=== PATIENT | female | born 1980 | race Caucasian/White ===

== ENCOUNTER 2016-04-03 12:37 | Emergency (ER) | payer SELFPAY ==
[2016-04-03 13:02] LABS: Blood, Urine Moderate (Negative); Glucose, Urine (Dipstick) Negative (Negative); Ketone, Urine Negative (Negative); Nitrite Negative (Negative); Protein, Urine (Dipstick) 30 mg/dL (Neg-Trace)
[2016-04-03 13:07] LABS: Bilirubin Negative (Negative)
[2016-04-03 13:11] LABS: Bacteria/HPF 1+ HPF (None Seen); WBC/HPF None Seen HPF (0-3)
[2016-04-03 13:12] LABS: Methadone Not Detected (NotDetected); Methamphetamine Detected (NotDetected)
[2016-04-03] MEDS ORDERED: Azithromycin 250 MG TAB ONE (13:51)
--- NOTE | 2016-04-03 14:14 | ERRECORD ---
[facility] EMERGENCY RECORD HPI VAGINAL DISCHARGE (13:06 SHAN) CHIEF COMPLAINT: Patient presents for evaluation of vaginal discharge, Patient presents for evaluation of came in with hx of tampon left in for about a month; odor. patient removed it. came in to be certain 'not another one there' and concern about the odor. HISTORIAN: History provided by patient. ROS (13:07 SHAN) CONSTITUTIONAL: Negative constitutional review of systems. EYES: Negative eye review of systems. ENT: Negative ears, nose, throat review of systems. CARDIOVASCULAR: Negative cardiovascular review of systems. RESPIRATORY: Negative respiratory review of systems. GI: Negative gastrointestinal review of systems. GENITOURINARY FEMALE: vaginal odor. MUSCULOSKELETAL: Negative musculoskeletal review of systems. SKIN: Negative skin review of systems. NEUROLOGIC: Negative neurologic review of systems. ENDOCRINE: Negative endocrine review of systems. NOTES: All systems reviewed, negative except as described above. PAST MEDICAL HISTORY (12:49 BDON) MEDICAL HISTORY: Flu vaccine not up to date, Tetanus not up to date, Pneumococcal vaccine not up to date, No past medical history. FEMALE SURGICAL HISTORY: Surgical history of section. PSYCHIATRIC HISTORY: Psychiatric history includes, anxiety, bipolar disorder, PANIC ATTACKS. SOCIAL HISTORY: Patient drinks socially, Patient currently uses drugs, abuses marijuana, Patient currently uses tobacco, smokes cigarettes. KNOWN ALLERGIES No Known Drug Allergies CURRENT MEDICATIONS (12:45 BDON) PROzac: CAPSULE : Strength - 20 mg : ORAL Patient Dose: uk once a day. traZODone: TABLET : Strength - 150 mg : ORAL Patient Dose: uk once a day (at bedtime). VITAL SIGNS VITAL SIGNS: BP: 142/92, Pulse: 95, Resp: 17, Temp: 97.8 (Oral), Pain: 0, O2 sat: 99, Time: 04/03/2016 12:41. (12:41 BDON) Pulse: 88, Resp: 18, Pain: 0, Time: 04/03/2016 14:02. (14:02 BDON) PHYSICAL EXAM &a-1R&a+25V*p+0X*k1328Y*c202B*c15G*c2P*p-0X&a-25V&a+1R Name: Natty Carty Maggie : 1980 F35 MedRec: [id number] AcctNum: [id number] Prepared: MonApr 04, 2016 06:20 by Interface Page 1 of 3 D [facility] EMERGENCY RECORD CONSTITUTIONAL: Patient afebrile, Pulse normal, Blood pressure normal, Respiratory rate normal, Patient appears non toxic, Patient appears pain free, Patient alert and oriented to person, place and time. (13:07 SHAN) HEAD: Head exam included findings of head atraumatic, normocephalic. (13:07 SHAN) EYES: Eye exam normal, Eye exam included findings of eyelids normal to inspection, Pupils equally round and reactive to light, Extraocular muscles intact. (13:07 SHAN) ENT: ENT exam normal, Pharynx exam normal, Uvula exam normal, Tonsil exam normal. (13:07 SHAN) NECK: Neck exam normal, Neck exam included findings of normal range of motion, Trachea midline. (13:07 SHAN) RESPIRATORY CHEST: Respiratory and chest exam normal, Chest exam included findings of chest movement symmetrical, Chest expansion equal, Percussion normal. (13:07 SHAN) CARDIOVASCULAR: Cardiovascular assessment normal, Cardiovascular exam included findings of heart rate regular rate and rhythm, Heart sounds normal. (13:07 SHAN) ABDOMEN FEMALE: Abdominal exam normal, Abdominal exam included findings of abdomen nontender, Bowel sounds normal. (13:07 SHAN) GENITOURINARY FEMALE: with nurse evaluation assistant present, vaginal exam with speculum and bimanual done; cervix not unusually tender, some old blood present; moderate foul smelling odor. (13:08 SHAN) BACK: Back exam normal. (13:07 SHAN) UPPER EXTREMITY: Upper extremity exam normal, Upper extremity exam included findings of inspection normal, Range of motion normal. (13:07 SHAN) LOWER EXTREMITY: Lower extremity exam normal, Lower extremity exam included findings of inspection normal, Range of motion normal. (13:07 SHAN) NEURO: Neuro exam normal. (13:07 SHAN) SKIN: Skin exam normal. (13:07 SHAN) PSYCHIATRIC: Psychiatric exam normal, Psychiatric exam included findings of patient oriented to person place and time, Normal affect, Judgment normal, Insight normal. (13:07 SHAN) MEDICATION ADMINISTRATION SUMMARY Drug Name: Zithromax oral, Dose Ordered: 4 tab(s), Route: Oral, Status: Given, Time: 13:55 04/03/2016, Detailed record available in Medication Service section. DOCTOR NOTES (13: MINI) TEXT: Adult female who stated that she discovered a tampon in the vagina left over from last month and removed it; wanted to have the odor with discharge checked and also wanted to have to make sure more material not in the vagina. With the nurse present, exam done and odor and blood noted. GC and Chlamydia tests done. Will rx &a-1R&a+25V*p+0X*[id number]*c202B*c15G*c2P*p-0X&a-25V&a+1R Name: Natty Carty : 1980 F35 MedRec: [id number] AcctNum: [id number] Prepared: MonApr 04, 2016 06:20 by Interface Page 2 of 3 pMD [facility] EMERGENCY RECORD as vaginitis r/o cervicitis. Discussed that there will be some pending tests. PROBLEM LIST No recorded problems DIAGNOSIS (13:19 MINI) FINAL: PRIMARY: Acute vaginitis, ADDITIONAL: drug abuse, recent vaginal foreign body. PRESCRIPTION Flagyl: TABLET : 500 mg : ORAL : Quantity: 1 Unit: tab(s) Route: ORAL Schedule: 3 times a day Dispense: 30 Unit: tab(s) May substitute. Refills: No Refills . (13:14 MINI) NOTES: No Refills. (13:14 MINI) Vibramycin capsule: CAPSULE : 100 mg : ORAL : Quantity: 1 Unit: cap(s) Route: ORAL Schedule: 2 times a day (with meals) Dispense: 14 Unit: tab(s) May substitute. Refills: No Refills . (13:15 MINI) NOTES: No Refills. (13:15 MINI) DISPOSITION PATIENT: Disposition Type: Discharge, Disposition: *Discharge Home. (13:19 MINI) Patient left the department. (14:06 CONCHIS) Renteria: CONCHIS=SAHRA Arreguin, Ana MORSE=MD Hunter, Madi &a-1R&a+25V*p+0X*[id number]*c202B*c15G*c2P*p-0X&a-25V&a+1R Name: Natty Carty : 1980 F35 MedRec: [id number] AcctNum: [id number] Prepared: MonApr 04, 2016 06:20 by Interface Page 3 of 3 pMD MTDD
--- NOTE | 2016-04-03 14:14 | PICIS ---
[facility] EMERGENCY RECORD TRIAGE ([place] Apr 03, 2016 12:44 BDON) TRIAGE NOTES: A month ago, forgot about tampon, found last night. Strong odor like "a animal", had cramps earlier but not now. Have since taken out. Denies urinary. ([place] Apr 03, 2016 12:44 BDON) PATIENT: NAME: Natty Carty, AGE: 35, GENDER: female, : Mon1980, TIME OF GREET: MonApr 03, 2016 12:38, PREFERRED LANGUAGE: Persian, ETHNICITY: Not or , ECODE BILLING MAP: [facility], SSN: [id number], Zip Code: [address], KG WEIGHT: 71.21, PHONE: , , , PERSON ID: [id number], PCP: Nawaf Greenwood, /Son. ([place] Apr 03, 2016 12:44 BDON) COMPLAINT: FEMALE ISSUES. ([place] Apr 03, 2016 12:44 BDON) ADMISSION: URGENCY: 4 Non Urgent, ADMISSION SOURCE: Home, TRANSPORT: Walk-in, BED: TRIAGE. ([place] Apr 03, 2016 12:44 BDON) ASSESSMENT: Assessment: Tampoon left in vaginia for a month. States had strong odor, denies urinary symptoms. Took out last night...no pain now, Symptoms began yesterday. (12:49 BDON) TREATMENTS IN PROGRESS: Treatments given Prehospital: aspirin 325mg 1100, Atarril yesterday morning. (12:49 BDON) PROVIDERS: TRIAGE NURSE: Ana Arreguin RN. ([place] Apr 03, 2016 12:44 BDON) VITAL SIGNS: BP 142/92, Pulse 95, Resp 17, Temp 97.8, (Oral), Pain 0, O2 Sat 99, Time 04/03/2016 12:41. (12:41 BDON) PREVIOUS VISIT ALLERGIES: No Known Drug Allergies. ([place] Apr 03, 2016 12:44 BDON) No Known Drug Allergies. (12:49 BDON) KNOWN ALLERGIES No Known Drug Allergies CURRENT MEDICATIONS (12:45 BDON) PROzac: CAPSULE : Strength - 20 mg : ORAL Patient Dose: uk once a day. traZODone: TABLET : Strength - 150 mg : ORAL Patient Dose: uk once a day (at bedtime). VITAL SIGNS VITAL SIGNS: BP: 142/92, Pulse: 95, Resp: 17, Temp: 97.8 (Oral), Pain: 0, O2 sat: 99, Time: 04/03/2016 12:41. (12:41 BDON) Pulse: 88, Resp: 18, Pain: 0, Time: 04/03/2016 14:02. (14:02 BDON) NURSING ASSESSMENT: GENITOURINARY (12:57 BDON) CONSTITUTIONAL: Patient arrives ambulatory, Gait steady, History obtained from patient, Patient appears comfortable, Patient cooperative, Patient alert, Oriented to person, place and time, Skin warm, Skin dry, Skin normal in color. GENITOURINARY FEMALE: no associated urinary complaints, Notes: &a-1R&a+25V*p+0X*s9233M*c202B*c15G*c2P*p-0X&a-25V&a+1R Name: Natty Carty : 1980 F35 MedRec: [id number] AcctNum: [id number] Prepared: MonApr 04, 2016 06:26 by Interface Page 1 of 7 pMD [facility] EMERGENCY RECORD tampon from last month was removed yesterday, states prior to removal some cramping but none now. Denies urinary complaints. ABDOMEN: Abdomen assessment findings include abdomen symmetrical, Abdomen soft, non-tender. SAFETY: Cart/Stretcher in lowest position, Hospital ID band on, Patient in view of the nursing station. NURSING PROCEDURE: DISCHARGE NOTE (14:02 BDON) DISCHARGE: Patient discharged to home, ambulating without assistance, accompanied by //partner, Summary of Care printed/ provided, Patient requested and was provided an electronic copy of Discharge Instructions, Transition record given to patient, Discharge instructions given to patient, Simple or moderate discharge teaching performed, Prescriptions given and instructions on side effects given, Medication reconciliation form given, Above person(s) verbalized understanding of discharge instructions and follow-up care, Patient treated and evaluated by physician. BELONGINGS: boots. VITAL SIGNS: Pulse: 88, Resp: 18, Pain: 0. NURSING PROCEDURE: NURSE NOTES (12:48 BDON) NURSES NOTES: Patient assisted to bathroom with steady gait. NURSING PROCEDURE: PELVIC EXAM (13:03 EPIE) PELVIC EXAM: Pelvic exam performed by Dr. Hunter CARMICHAEL, Pelvic exam assisted by Tyesha BOCANEGRA, Exam findings include bleeding, small amount. ORDER DETAILS Order Name: Drug Screen, Urine, Status: Active, Time: 12:51 04/03/2016, User: MINI, - Ordered for: MD Harrison Stanley, - Entered by: MD Harrison Stanley - Sun Apr 03, 2016 12:51, - Quantity: 1, Order Name: GC/Chlamydia Profile by PCR, Status: Active, Time: 12:53 04/03/2016, User: MINI, - Ordered for: MD Harrison Stanley, - Entered by: MD Harrison Stanley - Sun Apr 03, 2016 12:53, - Quantity: 1, Order Name: Miscellaneous Nurse Order(s), Status: Done, Time: 13:02 04/03/2016, User: CONCHIS, - Ordered for: MD Harrison Stanley, - Entered by: SAHRA Arreguin, Ana Ramírez Apr 03, 2016 13:01, - Quantity: 1, Order Name: Test, Urine (BHCG), Status: Active, Time: 12:52 04/03/2016, User: MINI, - Ordered for: MD Harrison Stanley, - Entered by: MD Harrison Stanley - Sun Apr 03, 2016 12:52, - Quantity: 1, &a-1R&a+25V*p+0X*y1206Q*c202B*c15G*c2P*p-0X&a-25V&a+1R Name: MachelleNatty : 1980 F35 MedRec: [id number] AcctNum: [id number] Prepared: MonApr 04, 2016 06:26 by Interface Page 2 of 7 pMD [facility] EMERGENCY RECORD Order Name: Urinalysis w/ Rflx Microscopic, Status: Active, Time: 12:46 04/03/2016, User: CONCHIS, - Ordered for: MD Harrison Stanley, - Entered by: SAHRA Arreguin Bettye - Sun Apr 03, 2016 12:46, - Quantity: 1. MEDICATION ADMINISTRATION SUMMARY Drug Name: Zithromax oral, Dose Ordered: 4 tab(s), Route: Oral, Status: Given, Time: 13:55 04/03/2016, Detailed record available in Medication Service section. MEDICATION SERVICE (13:55 SHAN) Zithromax oral: Order: Zithromax oral (azithromycin) - Dose: 4 tab(s) : Oral Schedule: Now Ordered by: Madi Harrison MD Entered by: Madi Harrison MD [place] Apr 03, 2016 13:13 Documented as given by: Ana Arreguin RN [place] Apr 03, 2016 13:55 Patient, Medication, Dose, Route and Time verified prior to administration. Site: Medication administered P.O., Correct patient, time, route, dose and medication confirmed prior to administration, Patient advised of actions and side-effects prior to administration, Allergies confirmed and medications reviewed prior to administration. HPI VAGINAL DISCHARGE (13:06 SHAN) CHIEF COMPLAINT: Patient presents for evaluation of vaginal discharge, Patient presents for evaluation of came in with hx of tampon left in for about a month; odor. patient removed it. came in to be certain 'not another one there' and concern about the odor. HISTORIAN: History provided by patient. ROS (13:07 SHAN) CONSTITUTIONAL: Negative constitutional review of systems. EYES: Negative eye review of systems. ENT: Negative ears, nose, throat review of systems. CARDIOVASCULAR: Negative cardiovascular review of systems. RESPIRATORY: Negative respiratory review of systems. GI: Negative gastrointestinal review of systems. GENITOURINARY FEMALE: vaginal odor. MUSCULOSKELETAL: Negative musculoskeletal review of systems. SKIN: Negative skin review of systems. NEUROLOGIC: Negative neurologic review of systems. ENDOCRINE: Negative endocrine review of systems. NOTES: All systems reviewed, negative except as described above. PAST MEDICAL HISTORY (12:49 BDON) MEDICAL HISTORY: Flu vaccine not up to date, Tetanus not up to date, Pneumococcal vaccine not up to date, No past medical &a-1R&a+25V*p+0X*s6934I*c202B*c15G*c2P*p-0X&a-25V&a+1R Name: Natty Carty : 1980 F35 MedRec: [id number] AcctNum: [id number] Prepared: MonApr 04, 2016 06:26 by Interface Page 3 of 7 pMD [facility] EMERGENCY RECORD history. FEMALE SURGICAL HISTORY: Surgical history of section. PSYCHIATRIC HISTORY: Psychiatric history includes, anxiety, bipolar disorder, PANIC ATTACKS. SOCIAL HISTORY: Patient drinks socially, Patient currently uses drugs, abuses marijuana, Patient currently uses tobacco, smokes cigarettes. PHYSICAL EXAM CONSTITUTIONAL: Patient afebrile, Pulse normal, Blood pressure normal, Respiratory rate normal, Patient appears non toxic, Patient appears pain free, Patient alert and oriented to person, place and time. (13:07 SHAN) HEAD: Head exam included findings of head atraumatic, normocephalic. (13:07 SHAN) EYES: Eye exam normal, Eye exam included findings of eyelids normal to inspection, Pupils equally round and reactive to light, Extraocular muscles intact. (13:07 SHAN) ENT: ENT exam normal, Pharynx exam normal, Uvula exam normal, Tonsil exam normal. (13:07 SHAN) NECK: Neck exam normal, Neck exam included findings of normal range of motion, Trachea midline. (13:07 SHAN) RESPIRATORY CHEST: Respiratory and chest exam normal, Chest exam included findings of chest movement symmetrical, Chest expansion equal, Percussion normal. (13:07 SHAN) CARDIOVASCULAR: Cardiovascular assessment normal, Cardiovascular exam included findings of heart rate regular rate and rhythm, Heart sounds normal. (13:07 SHAN) ABDOMEN FEMALE: Abdominal exam normal, Abdominal exam included findings of abdomen nontender, Bowel sounds normal. (13:07 SHAN) GENITOURINARY FEMALE: with nurse library clerical assistant present, vaginal exam with speculum and bimanual done; cervix not unusually tender, some old blood present; moderate foul smelling odor. (13:08 SHAN) BACK: Back exam normal. (13:07 SHAN) UPPER EXTREMITY: Upper extremity exam normal, Upper extremity exam included findings of inspection normal, Range of motion normal. (13:07 SHAN) LOWER EXTREMITY: Lower extremity exam normal, Lower extremity exam included findings of inspection normal, Range of motion normal. (13:07 SHAN) NEURO: Neuro exam normal. (13:07 SHAN) SKIN: Skin exam normal. (13:07 SHAN) PSYCHIATRIC: Psychiatric exam normal, Psychiatric exam included findings of patient oriented to person place and time, Normal affect, Judgment normal, Insight normal. (13:07 SHAN) EVENTS TRANSFER: Triage to Emergency Triage. ([place] Apr 03, 2016 12:44 &a-1R&a+25V*p+0X*k5478S*c202B*c15G*c2P*p-0X&a-25V&a+1R Name: Natty Carty : 1980 F35 MedRec: [id number] AcctNum: [id number] Prepared: [facility] Apr 04, 2016 06:26 by Interface Page 4 of 7 pMD [facility] EMERGENCY RECORD BDON) Emergency Triage to Emergency Room -05. (12:44 EPIE) Removed from Emergency Emergency Room -05. (14:06 BDON) DOCTOR NOTES (13:09 SHAN) TEXT: Adult female who stated that she discovered a tampon in the vagina left over from last month and removed it; wanted to have the odor with discharge checked and also wanted to have to make sure more material not in the vagina. With the nurse present, exam done and odor and blood noted. GC and Chlamydia tests done. Will rx as vaginitis r/o cervicitis. Discussed that there will be some pending tests. PROBLEM LIST No recorded problems DIAGNOSIS (13:19 SHAN) FINAL: PRIMARY: Acute vaginitis, ADDITIONAL: drug abuse, recent vaginal foreign body. DISPOSITION PATIENT: Disposition Type: Discharge, Disposition: *Discharge Home. (13:19 SHAN) Patient left the department. (14:06 BDON) INSTRUCTION (13:17 SHAN) DISCHARGE: FOREIGN BODY VAGINAL ADULT, VAGINITIS, BACTERIAL. FOLLOWUP: [facility], /[facility], [address] [place] [id number], . SPECIAL: 1. one antibiotic is three times a day; the other is twice a day; take them with food and no alcohol while on them 2. drink extra fluids 3. a yeast infection could occur, otc monistat or similar agent could be used 4. followup with regular provider in about 10 days 5. return earlier if problems develop. PRESCRIPTION Flagyl: TABLET : 500 mg : ORAL : Quantity: 1 Unit: tab(s) Route: ORAL Schedule: 3 times a day Dispense: 30 Unit: tab(s) May substitute. Refills: No Refills . (13:14 SHAN) NOTES: No Refills. (13:14 SHAN) Vibramycin capsule: CAPSULE : 100 mg : ORAL : Quantity: 1 Unit: cap(s) Route: ORAL Schedule: 2 times a day (with meals) Dispense: 14 Unit: tab(s) May substitute. Refills: No Refills . (13:15 SHAN) NOTES: No Refills. (13:15 SHAN) IMAGING (14:05 BDON) &a-1R&a+25V*p+0X*x2262S*c202B*c15G*c2P*p-0X&a-25V&a+1R Name: Natty Carty : 1980 F35 MedRec: [id number] AcctNum: [id number] Prepared: MonApr 04, 2016 06:26 by Interface Page 5 of 7 pMD [facility] EMERGENCY RECORD *DISCHARGE INSTRUCTIONS RECEIPT: Image captured from scanner. *SUPPLY CHARGE SHEET: Image captured from scanner. ADMIN DIGITAL SIGNATURE: SAHRA Arreguin, Ana. (14:06 BDON) MD Hunter, Madi. (MonApr 04, 2016 06:17 SHAN) RESULTS (13:18 SHAN) LABORATORY: Test, Urine (BHCG) Collection DT: [place] Apr 03, 2016 13:01, Test - Urine (BHCG) NEGATIVE , Range (NEGATIVE), Method of sensitivity- Indeterminant: results should be repeated, after 48 hours. Positive: results may be detected as early as 4-5 days before a first missed menses. Elimination of BHCG-, Elimination following first trimester D&C: 29-44 Days , Elimination following term : 8-24 Days , Specific [place] 1.032 , Range (1.002-1.036), A dilute urine specimen may, not contain artists' booking representative levels of hCG. If is still, suspected, a first morning urine specimen OR a random blood specimen should, be obtained from the patient 48-72 hours later and re-tested. , . Drug Screen, Urine Collection DT: [place] Apr 03, 2016 12:57, *THC/Cannabinoid Screen Detected - H , Range (NotDetected), Phencyclidine (PCP) Not Detected , Range (NotDetected), Cocaine Metabolite Screen Not Detected , Range (NotDetected), *Methamphetamine Detected - H , Range (NotDetected), Opiate Screen Not Detected , Range (NotDetected), *Amphetamine Detected - H , Range (NotDetected), *Benzodiazepine Screen Detected - H , Range (NotDetected), Tricyclic Screen Not Detected , Range (NotDetected), Methadone Not Detected , Range (NotDetected), Barbiturates Screen Not Detected , Range (NotDetected), Oxycodone Screen Not Detected , Range (NotDetected), Propoxyphene Screen Not Detected , Range (NotDetected), Drug Screen Cutoff , Range (), The [employer] Profile-V Panel for Qualitative Drugs of Abuse assays are for, presumptive screening testing only. The drug class and detection limits, are as follows: Drug Class Detection Limit Amphetamine , 500 ng/mL* &a-1R&a+25V*p+0X*k9631O*c202B*c15G*c2P*p-0X&a-25V&a+1R Name: Rosalba Cartytaylor Serrano : 1980 F35 MedRec: [id number] AcctNum: [id number] Prepared: [facility] Apr 04, 2016 06:26 by Interface Page 6 of 7 pMD [facility] EMERGENCY RECORD Barbiturates 200 ng/mL , Benzodiazepines 150 ng/mL* Cocaine 150 ng/mL*, Methamphetamine 500 ng/mL* Methadone 200, ng/mL* Opiates 100 ng/mL* Oxycodone , 100 ng/mL PCP 25 ng/mL Propoxyphene , 300 ng/mL Tricyclic Antidepressants 300 ng/mL Cannabinoids (THC) , 50 ng/mL Tests which yield a presumptive positive result must be , tested using a more specific alternate chemical method in order to obtain, a confirmed analytical result. Additional confirmation and identification, may be ordered on a routine basis, if desired. Presumptive positive urines, are held for two weeks. . Urine Microscopic Collection DT: [place] Apr 03, 2016 12:57, RBC/HPF 4-6 HPF, Range (0-3), WBC/HPF None Seen HPF, Range (0-3), *Squamous Epithelial 7-10 - H HPF, Range (0-3), *Bacteria/HPF 1+ - H HPF, Range (None Seen). Urinalysis w/ Rflx Microscopic Collection DT: [place] Apr 03, 2016 12:57, Color Dark Yellow , Range (Yellow), Clarity Hazy , Range (Clear), Specific [place], Urine 1.032 , Range (1.002-1.036), pH, Urine 6.0 , Range (5.0-9.0), Leukocyte Negative , Range (Negative), Nitrite Negative , Range (Negative), *Protein, Urine (Dipstick) 30 - H mg/dL, Range (Neg-Trace), Glucose, Urine (Dipstick) Negative mg/dL, Range (Negative), Ketone, Urine Negative mg/dL, Range (Negative), *Urobilinogen 4.0 - H mg/dL, Range (0.2-1.0), Bilirubin Negative , Range (Negative), , *Blood, Urine Moderate - H , Range (Negative). Renteria: CONCHIS=SAHRA Arreguin, Ana MCKEON=SAHRA Trevino, Tyesha MORSE=MD Hunter, Madi &a-1R&a+25V*p+0X*a6274X*c202B*c15G*c2P*p-0X&a-25V&a+1R Name: Natty Carty Maggie : 1980 F35 MedRec: [id number] AcctNum: [id number] Prepared: MonApr 04, 2016 06:26 by Interface Page 7 of 7 pMD MTDD
== END 2016-04-03 14:02 | disposition home or self-care (01) ==
LOC: NAV ERS 12:37
DX: N76.0 Acute vaginitis (principal); F31.9 Bipolar disorder, unspecified; F41.9 Anxiety disorder, unspecified; F17.210 Nicotine dependence, cigarettes, uncomplicated; F19.10 Other psychoactive substance abuse, uncomplicated; Z79.899 Other long term (current) drug therapy
CPT/HCPCS: 80306; 81003; 81015; 81025; 87491; 87591; 99283

== ENCOUNTER 2019-01-01 17:31 | Emergency (ER) | payer SELFPAY ==
[2019-01-01 18:12] LABS: Bilirubin Negative (Negative); Blood, Urine Negative (Negative); Clarity Clear (Clear); Glucose, Urine (Dipstick) Negative (Negative); Leukocyte Negative (Negative); Nitrite Negative (Negative); Protein, Urine (Dipstick) Negative (Neg-Trace); Urobilinogen 0.2 mg/dL (Less than 2)
[2019-01-01 18:16] LABS: Pregnancy Test - Urine (BHCG) Negative (Negative); Pregu Control Background? CLEAR/WHITE (CLR/WHITE); Pregu Control Bar Appear? YES (CONTROL BAR)
== END 2019-01-01 18:27 | disposition home or self-care (01) ==
LOC: NAV ERS 17:31
DX: S23.41XA Sprain of ribs, initial encounter (principal); F41.9 Anxiety disorder, unspecified; F17.210 Nicotine dependence, cigarettes, uncomplicated; Y04.0XXA Assault by unarmed brawl or fight, initial encounter
CPT/HCPCS: 81003; 81025; 99283

== ENCOUNTER 2023-01-11 12:55 | Emergency (ER) | payer SELFPAY ==
[~2023-01-11 12:55] MED LIST: Iopamidol 370 76% 100 ML VIAL ONE
[2023-01-11] MEDS ORDERED: Sodium Chloride 0.9% 1,000 ML ONE (13:46)
[2023-01-11] MEDS ORDERED: Ondansetron PF 4 MG/2 ML Vial ONE (13:46)
[2023-01-11] MEDS ORDERED: Morphine 4 MG/ML VIAL ONE (13:46)
[2023-01-11 14:02] LABS: #Basophils 0.1 thou/uL (0.0-0.2); #Eosinphils 0.1 thou/uL (0.0-0.7); #Lymphocytes 1.9 thou/uL (1.20-3.40); #Monocytes 0.6 thou/uL (0.11-0.59); #Neutrophils 3.2 thou/uL (1.40-6.50); %Basophils 1.6 % (0.0-1.0); %Eosinophils 2.5 % (0.0-10.0); %Lymphocytes 31.4 % (21.0-51.0); %Monocytes 10.4 % (0.0-10.0); %Neutrophils 54.1 % (42.0-75.0); Hematocrit 42.3 % (36.0-47.0); Hemoglobin 14.4 g/dL (12.0-16.0); Mean Corpuscular Hemoglobin 35.8 pg (27.0-31.0); Mean Platelet Volume 9.4 fL (7.4-10.4); Platelet Count 283 10x3/uL (130-400); RBC Distribution Width 11.2 % (11.5-14.5); Red Blood Cell (RBC) Count 4.01 mill/uL (4.20-5.40)
[2023-01-11 14:03] LABS: ALT (SGPT) 34 U/L (8-55); AST (SGOT) 36 U/L (5-34); Albumin 3.3 g/dL (3.5-5.0); Alkaline Phosphatase 64 U/L (40-110); Anion Gap 12 mmol/L (10-20); BUN (Urea Nitrogen) 10 mg/dL (7.0-18.7); Bilirubin, Total 0.9 mg/dL (0.2-1.2); Calc. Creatinine Clearance 0 mL/min (70-130); Calcium 8.7 mg/dL (7.8-10.44); Carbon Dioxide 26 mmol/L (22-29); Chloride 106 mmol/L (98-107); Estimated GFR 115; Globulin 3.2 g/dL (2.4-3.5); Glucose 90 mg/dL (70-105); Lipase 31 U/L (8-78); Protein, Total 6.5 g/dL (6.0-8.3); Sodium 141 mmol/L (136-145)
[2023-01-11 14:05] LABS: BHCG - Serum Negative (NEGATIVE); Pregs Control Bar Appear? YES (CONTROL BAR)
[2023-01-11] MEDS ORDERED: Potassium Chloride 20 MEQ TAB ONE (15:12)
[2023-01-11 15:38] LABS: Bilirubin Negative (Negative); Blood, Urine Negative (Negative); Glucose, Urine (Dipstick) Negative (Negative); Ketone, Urine Negative (Negative); Leukocyte Trace (Negative); Nitrite Positive (Negative); Protein, Urine (Dipstick) Negative (Neg-Trace); Specific Gravity, Urine 1.015 (1.005-1.030)
[2023-01-11 15:51] LABS: Clarity Hazy (Clear)
[2023-01-11 15:56] LABS: Bacteria/HPF 4+ HPF (None Seen); CAUTI Indications for Culture Pelvic or flank pain; RBC/HPF 0-3 HPF (0-3); Squamous Epithelial 0-3 HPF (0-3)
[2023-01-11 15:58] LABS: Urine Culture Reflex No No
== END 2023-01-11 16:34 | disposition home or self-care (01) ==
LOC: NAV ERS 12:55
DX: N39.0 Urinary tract infection, site not specified (principal); N88.8 Other specified noninflammatory disorders of cervix uteri; E87.6 Hypokalemia; F17.210 Nicotine dependence, cigarettes, uncomplicated
CPT/HCPCS: 74177; 80053; 81001; 83690; 84703; 85025; 96374; 96375; J2270; J2405; J7050; Q9967